=== PATIENT | female | born 2000 | race Caucasian/White ===

== ENCOUNTER 2021-07-06 21:50 | Emergency (ER) | payer BC ==
[~2021-07-06] VITALS: Ht 165.1 cm; Wt 62.6 kg
== END 2021-07-07 03:01 | disposition home or self-care (01) ==
LOC: ED 21:50
DX: G43.909 Migraine, unspecified, not intractable, without status migrainosus (principal); H53.9 Unspecified visual disturbance
CPT/HCPCS: 70450; 80053; 84703; 85025; 99283-25; U0003